=== PATIENT | female | born 1960 | race Caucasian/White ===

== ENCOUNTER → 2020-10-20 | Outpatient (CLI) | payer OTHER ==
[2020-10-20 10:19] LABS: ALBUMIN 4.2 g/dL (3.5-5.0); ALKALINE PHOSPHATASE 83 U/L (38-126); ANION GAP 7 (5-19); ASPARTATE AMINO TRANSFERASE 23 U/L (14-36); BILIRUBIN,DIRECT 0.1 mg/dL (0.0-0.4); BILIRUBIN,TOTAL 0.5 mg/dL (0.2-1.3); BLOOD UREA NITROGEN 12 mg/dL (7-20); CALCIUM 9.9 mg/dL (8.4-10.2); CARBON DIOXIDE 28 mmol/L (22-30); CHLORIDE 104 mmol/L (98-107); CHOLESTEROL 181.46 mg/dL (0-200); GLUCOSE 96 mg/dL (75-110); POTASSIUM 4.4 mmol/L (3.6-5.0); TOTAL PROTEIN 7.4 g/dL (6.3-8.2); TRIGLYCERIDES 64 mg/dL (<150)
[2020-10-20 10:30] LABS: DIRECT LDL 97 mg/dL (<100)
[2020-10-23 07:17] LABS: MUMPS IGG AB >300.0 AU/mL (Immune >10); RUBEOLA IGG AB >300.0 AU/mL (Immune >16); VARICELLA ZOSTER IGG AB >4000 index (Immune >16)
== END ==
LOC: OD 08:43
PROVIDERS: ATTEND Family Medicine
DX: Z13.1 Encounter for screening for diabetes mellitus (principal); Z01.84 Encounter for antibody response examination; Z13.29 Encounter for screening for other suspected endocrine disorder; Z11.1 Encounter for screening for respiratory tuberculosis; Z13.220 Encounter for screening for lipoid disorders
CPT/HCPCS: 36415; 80053; 80061; 84443; 86480; 86735; 86762; 86765; 86787